=== PATIENT | female | born 1980 | race American Indian/Alaskan Native ===

== ENCOUNTER 2017-02-11 09:32 | Emergency (ER) | payer OTHER, MEDICAID ==
[~2017-02-11] VITALS: Ht 162.6 cm; Wt 90.0 kg
[2017-02-11] MEDS ORDERED: IRON1TAB37 PO (09:48)
[2017-02-11 10:31] LABS: BLOOD UREA NITROGEN 7 mg/dL (7-18)
[2017-02-11 10:37] LABS: ASPARTATE AMINO TRANSFERASE 9 U/L (15-37)
[2017-02-11 11:18] LABS: HEMOGLOBIN 7.6 g/dL (11.7-16.4)
[2017-02-11 11:20] LABS: ANISOCYTOSIS 2+; HYPOCHROMIA 1+; MICROCYTOSIS 1+; POIKILOCYTOSIS 1+; POLYCHROMASIA 1+
[2017-02-11 11:21] LABS: OVALOCYTES 1+
[2017-02-11 11:24] LABS: LARGE PLATELETS 1+
[2017-02-11] MEDS ORDERED: FERROUS SULFATE 325 MG TABLET PO ONE (12:00)
[2017-02-11 12:44] VITALS: BP 115/64
== END 2017-02-11 12:45 | disposition home or self-care (01) ==
LOC: ED 10:51
DX: D50.0 Iron deficiency anemia secondary to blood loss (chronic) (principal)
CPT/HCPCS: 36415; 80053; 81001; 84703; 85025; 85610; 85730; 87086; 99284

== ENCOUNTER 2017-12-02 13:35 | Emergency (ER) | payer MEDICAID, OTHER ==
[~2017-12-02] VITALS: Ht 152.4 cm; Wt 83.2 kg
[~2017-12-02 13:35] MED LIST: IRON1TAB37 PO
[2017-12-02 13:45] VITALS: BP 135/78
== END 2017-12-02 14:59 | disposition home or self-care (01) ==
LOC: ED 14:00
DX: J20.8 Acute bronchitis due to other specified organisms (principal); J01.10 Acute frontal sinusitis, unspecified; B97.89 Other viral agents as the cause of diseases classified elsewhere
CPT/HCPCS: 71046; 99284

== ENCOUNTER 2019-05-28 16:27 | Emergency (ER) | payer MEDICAID ==
[~2019-05-28] VITALS: Ht 162.6 cm; Wt 82.7 kg
[2019-05-28 16:30] VITALS: BP 146/88
--- NOTE | 2019-05-28 16:47 | NUR ---
PT WITH C/O BILAT EAR PAIN, DENIES DRAINAGE OR TRAUMA. PT ALSO HAS SLIGHTLY SORE THROAT, EARS RINGING X3 DAYS.
[2019-05-28] MEDS ORDERED: DEXAMETHASONE 4 MG TABLET PO ONE (16:51)
--- NOTE | 2019-05-28 16:53 | NUR ---
ER PROVIDER IN TO EVAL PT
[2019-05-28] MEDS ORDERED: DEXAMETHASONE 4 MG TABLET ONE (16:57)
--- NOTE | 2019-05-28 17:16 | NUR ---
Patient/Caregiver given discharge instructions and they have confirmed that they understand the instructions. Patient ambulatory with steady gait.
== END 2019-05-28 17:18 | disposition home or self-care (01) ==
LOC: ED 17:12
DX: H60.13 Cellulitis of external ear, bilateral (principal); F15.20 Other stimulant dependence, uncomplicated; H60.333 Swimmer's ear, bilateral
CPT/HCPCS: 99283